=== PATIENT | male | born 1975 | race Caucasian/White ===

== ENCOUNTER 2023-05-07 17:39 | Emergency (ER) | payer SELFPAY ==
[~2023-05-07] VITALS: Ht 177.8 cm; Wt 81.7 kg
[2023-05-07 17:54] VITALS: BP 131/95
[2023-05-07] MEDS ORDERED: Cephalexin500 MG PO (17:57)
== END 2023-05-07 17:56 | disposition home or self-care (01) ==
LOC: ER 17:39
DX: L03.114 Cellulitis of left upper limb (principal)
CPT/HCPCS: 99283

== ENCOUNTER 2023-05-12 14:02 | Emergency (ER) | payer OTHER ==
[~2023-05-12] VITALS: Ht 175.3 cm; Wt 83.9 kg
[~2023-05-12 14:02] MED LIST: Cephalexin500 MG PO
[2023-05-12 14:18] VITALS: BP 155/88
[2023-05-12] MEDS ORDERED: CLOBETASOL EMOL15 G1 EXT (15:11)
== END 2023-05-12 15:22 | disposition home or self-care (01) ==
LOC: ER 14:02
DX: T65.6X1A Toxic effect of paints and dyes, not elsewhere classified, accidental (unintentional), initial encounter (principal); L25.2 Unspecified contact dermatitis due to dyes; Z79.899 Other long term (current) drug therapy
CPT/HCPCS: 99282